=== PATIENT | female | born 1960 | race Caucasian/White ===

== ENCOUNTER 2018-11-08 05:22 | Day surgery (SDC) | payer OTHER, MEDICARE ==
[~2018-11-08] VITALS: Ht 157.5 cm; Wt 84.1 kg
--- NOTE | 2018-11-08 06:51 | NUR ---
RECEIVED REPORT FROM MIRZA KESSLER. PT IN RADIOLOGY AT THIS TIME.
[2018-11-08 07:00] LABS: MEAN CORPUSCULAR HEMOGLOBIN 25.7 pg (27.0-34.8); MEAN CORPUSCULAR HGB CONC 32.9 g/dL (32.4-35.8); MEAN CORPUSCULAR VOLUME 78.1 fL (80-100); RED CELL DISTRIBUTION WIDTH 16.7 % (9.6-15.2)
[2018-11-08 07:07] LABS: ALANINE AMINOTRANSFERASE 21 U/L (12-78); ALBUMIN 3.3 g/dL (3.4-5.0); ANION GAP 9 mmol/L (5-15); CALCIUM 9.3 mg/dL (8.5-10.1); CHLORIDE 103 mmol/L (98-107); CREATININE 0.63 mg/dL (0.55-1.02)
[2018-11-08 07:09] LABS: ALKALINE PHOSPHATASE 72 U/L (45-117); BILIRUBIN,TOTAL 0.5 mg/dL (0.2-1.0); TOTAL PROTEIN 7.2 g/dL (6.4-8.2)
--- NOTE | 2018-11-08 07:12 | NUR ---
PT BACK FROM US AND PLACED ON BP AND CONT.PULSE OXIMETER
[2018-11-08] MEDS ORDERED: ENAL5TAB PO (07:24)
[2018-11-08] MEDS ORDERED: PRAV20TA2 PO (07:24)
[2018-11-08] MEDS ORDERED: SERT50TA28 PO (07:24)
[2018-11-08] MEDS ORDERED: OMEP40CA6 PO (07:25)
[2018-11-08] MEDS ORDERED: METF500T17 PO (07:25)
[2018-11-08] MEDS ORDERED: OXYM10TA PO (07:26)
[2018-11-08] MEDS ORDERED: OXYC15TA PO (07:28)
[2018-11-08 07:41] LABS: <PLATELET ESTIMATE> ADEQUATE; BASOPHILS # (AUTO) 0.04 x10^3/uL (0-0.1); BASOPHILS % (AUTO) 0 % (0-1); EOSINOPHILS # (AUTO) 0.79 x10^3/uL (0-0.4); EOSINOPHILS % (AUTO) 8 % (1-7); GIANT PLATELETS 1+; LARGE PLATELETS 1+; LYMPHOCYTES # (AUTO) 2.16 x10^3/uL (1-3.4); LYMPHOCYTES % (AUTO) 23 % (22-44); MD MORPH REVIEW ONLY; MEAN PLATELET VOLUME 12.3 fL (7.4-10.4); MONOCYTES % (AUTO) 5 % (2-9); NEUTROPHILS # (AUTO) 6.01 x10^3/uL (1.8-6.8); NEUTROPHILS % (AUTO) 63 % (42-75); PLATELET COUNT 193 x10^3/uL (130-400)
[2018-11-08 07:44] LABS: ANISOCYTOSIS 1+; MICROCYTOSIS 1+
[2018-11-08] MEDS ORDERED: MORPHINE SULFATE 4 MG/ML, 1ML IVPush ONE (08:30)
[2018-11-08] MEDS ORDERED: MORPHINE SULFATE 4 MG/ML, 1ML ONE ×2 (08:41→13:44)
--- NOTE | 2018-11-08 08:45 | NUR ---
PT STATES ABD PAIN OF 10/10. MORPHINE 4 MG IV GIVEN
--- NOTE | 2018-11-08 10:23 | NUR ---
PT RESTING IN BED, AWAITING FOR SURGEON
--- NOTE | 2018-11-08 11:29 | NUR ---
SURGEON CAME TO SPEAK TO PATIENT. PT WILL GO TO SURGERY AT 1800.
[2018-11-08] MEDS ORDERED: CEFTRIAXONE PMX 1GM/50ML 50 ML IV ONE (12:30)
[2018-11-08] MEDS ORDERED: CEFTRIAXONE PMX 1GM/50ML 50 ML ONE (13:28)
--- NOTE | 2018-11-08 13:36 | NUR ---
report given dhaval kumar rn
[2018-11-08] MEDS ORDERED: MORPHINE SULFATE 4 MG/ML, 1ML IVPush PRN (14:00)
[2018-11-08 14:33] VITALS: BP 149/89
[2018-11-08] MEDS ORDERED: BUPIVACAINE/PF-EPI 0.5% 1:200K ONE ×2 (17:28→17:39)
[2018-11-08] MEDS ORDERED: ONDANSETRON 2MG/ML, 2ML ONE (17:40)
[2018-11-08] MEDS ORDERED: PROPOFOL 10 MG/ML, 20ML ONE (17:40)
[2018-11-08] MEDS ORDERED: KETOROLAC 30 MG/1 ML ONE (17:40)
[2018-11-08] MEDS ORDERED: DEXAMETHASONE 4 MG/ML, 1ML ONE (17:40)
[2018-11-08] MEDS ORDERED: ROCURONIUM 10MG/ML,5ML ONE (17:40)
[2018-11-08] MEDS ORDERED: SUCCINYLCHOLINE 20 MG/ML, 10ML ONE (17:40)
[2018-11-08] MEDS ORDERED: FENTANYL PF 100 MCG/2ML ONE ×4 (17:41→18:57)
[2018-11-08] MEDS ORDERED: MIDAZOLAM 1 MG/ML, 2ML ONE (17:41)
[2018-11-08] MEDS ORDERED: MIDAZOLAM 1 MG/ML, 2ML IV PRN (18:30)
[2018-11-08] MEDS ORDERED: EPHEDRINE 50 MG/ML, 1ML IVPush PRN (18:30)
[2018-11-08] MEDS ORDERED: PROMETHAZINE 25 MG SUPP PR PRN (18:30)
[2018-11-08] MEDS ORDERED: DIPHENHYDRAMINE 50 MG/ML, 1ML IVPush PRN (18:30)
[2018-11-08] MEDS ORDERED: PROMETHAZINE 25 MG/ML, 1ML IV PRN (18:30)
[2018-11-08] MEDS ORDERED: MEPERIDINE/PF 25MG/0.5ML IVPush PRN (18:30)
[2018-11-08] MEDS ORDERED: EPHEDRINE 50 MG/ML, 1ML IM PRN (18:30)
[2018-11-08] MEDS ORDERED: LABETALOL 5MG/ML, 20ML IV PRN (18:30)
[2018-11-08] MEDS ORDERED: ONDANSETRON ODT 8 MG PO PRN (18:30)
[2018-11-08] MEDS ORDERED: PROMETHAZINE 12.5 MG SUPP PR PRN (18:30)
[2018-11-08] MEDS ORDERED: ONDANSETRON 2MG/ML, 2ML IVPush PRN (18:30)
[2018-11-08] MEDS ORDERED: HYDROmorphone 2 MG/ML, 1ML IVPush PRN (18:30)
[2018-11-08] MEDS ORDERED: ONDANSETRON 2MG/ML, 2ML IV PRN (18:30)
[2018-11-08] MEDS ORDERED: OXYcodone 5 MG/5 ML ORAL.SOL UDC PO PRN (18:30)
[2018-11-08] MEDS ORDERED: OXYcodone 5 MG/5 ML ORAL.SOL UDC ONE (18:57)
[2018-11-08] MEDS: OXYcodone 5 MG/5 ML ORAL.SOL UDC PO PRN ×2 (19:00→22:55)
[2018-11-08] MEDS: FENTANYL PF 100 MCG/2ML IV PRN ×2 (19:13→19:30)
[2018-11-08] MEDS ORDERED: hydrALAzine 20 MG/ML, 1ML ONE (19:18)
[2018-11-08] MEDS ORDERED: morphine SULFATE 10 MG/ML, 1ML ONE (19:20)
[2018-11-08] MEDS: MORPHINE SULFATE 4 MG/ML, 1ML IVPush PRN ×3 (19:23→19:46)
[2018-11-08] MEDS ORDERED: hydrALAzine 20 MG/ML, 1ML IV PRN (19:30)
[2018-11-09] MEDS: OXYcodone 5 MG/5 ML ORAL.SOL UDC PO PRN ×3 (02:57→10:37)
[2018-11-09 03:20] VITALS: BP 159/86
[2018-11-09 07:09] VITALS: BP 164/83
[2018-11-09] MEDS ORDERED: OXYC5TAB3 PO (10:49)
== END 2018-11-09 11:05 | disposition home or self-care (01) ==
LOC: ED 08:57 → EDIP 12:27 → UNDOADMIN 12:27 → OR 18:25 → 4NOR 20:40 → EDIP 20:40 → 4NOR 11-09 10:41 → DCLOUNGE 11-09 10:41 → UNDODISIN 11-09 11:05 → OR 11-09 11:05
PROVIDERS: ATTEND Emergency Medicine
DX: K80.10 Calculus of gallbladder with chronic cholecystitis without obstruction (principal); E11.9 Type 2 diabetes mellitus without complications; I10 Essential (primary) hypertension; F32.9 Major depressive disorder, single episode, unspecified; Z88.0 Allergy status to penicillin; Z88.8 Allergy status to other drugs, medicaments and biological substances; Z79.84 Long term (current) use of oral hypoglycemic drugs
CPT/HCPCS: 36415; 47562; 76700; 80053; 82962; 83690; 85025; 88304; J0330; J0360; J0696; J1100; J1885; J2250; J2405; J2704; J3010; G0378